=== PATIENT | male | born 1975 | race Caucasian/White ===

== ENCOUNTER 2017-01-16 10:51 | Emergency (ER) | payer BC ==
[2017-01-16 12:00] LABS: Hematocrit 49 % (42-52); Hemoglobin 16.6 g/dl (14.0-18.0); Mean Corpuscular HGB Conc 34 g/dl (31-36); Mean Corpuscular Hemoglobin 29 pg (27-31); Mean Corpuscular Volume 86 fL (80-94); Mean Platelet Volume 8 um3 (7.4-10.4); Red Blood Count 5.69 10^6/ul (4.0-5.4); Red Cell Distribution Width 13 % (10.5-15)
[2017-01-16 12:14] LABS: ALT 15 U/L (7-52); Albumin 4.7 g/dL (3.2-5.2); Alkaline Phosphatase 71 U/L (34-104); BUN/Creatinine Ratio 12.2 (8-20); Blood Urea Nitrogen 11 mg/dL (6-24); C Reactive Protein < 1.00 mg/L (< 5.00); CO2 Carbon Dioxide 27 mmol/L (22-32); Calcium 9.6 mg/dL (8.6-10.3); Chloride 103 mmol/L (101-111); Creatine Kinase 168 U/L (10-223); EGFR African American 120.2 (>60); EGFR Non-African American 93.5 (>60); Glucose 96 mg/dL (70-100); Sodium 135 mmol/L (133-145); Total Protein 7.7 g/dL (6.4-8.9)
--- NOTE | 2017-01-16 12:19 | RAD ---
HISTORY: Abdominal pain COMPARISONS: None TECHNIQUE: Multiple transverse and longitudinal ultrasound images were obtained of the right upper quadrant. FINDINGS: LIVER: In the right lobe of the liver there are 2 hyperechoic and avascular foci each measuring approximately 1 cm in average dimension. Otherwise the liver is normal in dimensions and echogenicity. Normal hepatic and portal venous blood flow is duplicated with color flow imaging. There is no gross intrahepatic biliary duct dilatation. GALLBLADDER AND EXTRAHEPATIC BILIARY DUCT: Within the gallbladder lumen there is echogenic nonshadowing, avascular material that appears to be immobile. There is no pericholecystic fluid or gallbladder wall thickening. The common bile duct measures a maximum diameter of 6 mm. PANCREAS: The portions of the pancreas not obscured by bowel gas are normal in appearance. RIGHT KIDNEY: The right kidney is normal in size, morphology and echogenicity. AORTA AND IVC: The visualized portions are normal in appearance and not pathologically dilated. IMPRESSION: 1. SONOGRAPHIC FINDINGS ARE CONSISTENT WITH EITHER GALLBLADDER SLUDGE, POLYPS OR ADENOMYOMATOSIS. THERE ARE NO ACUTE INFLAMMATORY CHANGES OR SIGNS OF PATHOLOGIC BILIARY OBSTRUCTION. 2. FINDINGS IN THE RIGHT LOBE OF THE LIVER ARE MOST CONSISTENT WITH BENIGN HEMANGIOMAS.
[2017-01-16 12:56] LABS: AST 18 U/L (13-39); Anion Gap 5 mmol/L (2-11)
[2017-01-16 13:44] VITALS: BP 127/89
--- NOTE | 2017-01-16 18:39 | ED ---
Royer Nova Angela, scribed for Pravin Sutton MD on 01/16/17 at 1121 . Abdominal Pain/Male - HPI Summary HPI Summary: This pt is a 41 y/o male presenting to [facility] [place] c/o intermittent upper abd tenderness x4 days. Pt reports it is worse in the evenings after eating. At its worse the pain is rated 7-8 out of 10 in severity. At its best the pain is rated 4 out of 10 in severity. Pt denies fever, chills, nausea, vomiting, diarrhea. He states during this summer he had some abd pain and light- headedness which he attributes to dehydration. He notes he was hydrated and was well for 2 months until today. PMHx: appendectomy. - History of Current Complaint Chief Complaint: EDAbdPain Stated Complaint: ABD PAIN Time Seen by Provider: 01/16/17 11:15 Hx Obtained From: Patient Onset/Duration: Lasting Days, Still Present Timing: Lasting Days Pain Intensity: 4 - at its best Pain Scale Used: 0-10 Numeric Location: Discrete At: RUQ Aggravating Factor(s): Food Alleviating Factor(s): Nothing Associated Signs And Symptoms: Negative: Fever, Nausea, Vomiting, Diarrhea - Allergies/Home Medications Allergies/Adverse Reactions: Allergies Allergy/AdvReac Type Severity Reaction Status Date / Time No Known Allergies Allergy Verified 01/16/17 11:40 PMH/Surg Hx/FS Hx/Imm Hx Endocrine/Hematology History: Denies: Hx Diabetes Cardiovascular History: Denies: Hx Hypertension Infectious Disease History: No Infectious Disease History: Denies: Traveled Outside the [place] in Last 30 Days - Family History Known Family History: Positive: Cardiac Disease - murmur, Other - cancer - Social History Alcohol Use: Occasionally Substance Use Type: Reports: Marijuana Smoking Status (MU): Never Smoked Tobacco Review of Systems Negative: Fever, Chills Positive: Abdominal Pain. Negative: Vomiting, Diarrhea, Nausea All Other Systems Reviewed And Are Negative: Yes Physical Exam - Summary Physical Exam Summary: VITAL SIGNS: Reviewed. GENERAL: Patient is a well-developed and nourished male who is lying comfortable in the stretcher. Patient is not in any acute respiratory distress. HEAD AND FACE: Normocephalic and atraumatic. EYES: PERRLA, EOMI x 2, No injected conjunctiva. EARS: Hearing grossly intact. Ear canals and tympanic membranes are WNL. MOUTH: Oropharynx within normal limits. NECK: Supple, trachea is midline, no adenopathy, no JVD. CHEST: Symmetric, no tenderness at palpation LUNGS: Clear to auscultation bilaterally. No wheezing or crackles. CVS: RRR, S1 and S2 present, no murmurs or gallops appreciated. ABDOMEN: Soft, non-tender. No signs of distention. Positive bowel sounds. No rebound no guarding, and no masses palpated. No abdominal bruit or pulsations. EXTREMITIES: FROM in all major joints, no edema, no cyanosis or clubbing. NEURO: Alert and oriented x 3. No acute neurological deficits. Speech is normal. SKIN: Dry and warm Triage Information Reviewed: Yes Vital Signs On Initial Exam: Initial Vitals Temp Pulse Resp BP Pulse Ox 98.1 F 75 18 145/84 99 01/16/17 11:02 01/16/17 11:02 01/16/17 11:02 01/16/17 11:02 01/16/17 11:02 Vital Signs Reviewed: Yes Diagnostics - Vital Signs Vital Signs Temp Pulse Resp BP Pulse Ox 01/16/17 11:02 98.1 F 75 18 145/84 99 - Laboratory Lab Results: Lab Results 01/16/17 01/16/17 01/16/17 Range/Units 11:30 11:30 11:30 WBC 8.0 (3.5-10.8) 10^3/ul RBC 5.69 H (4.0-5.4) 10^6/ul Hgb 16.6 (14.0-18.0) g/dl Hct 49 (42-52) % MCV 86 (80-94) fL MCH 29 (27-31) pg MCHC 34 (31-36) g/dl RDW 13 (10.5-15) % Plt Count 251 (150-450) 10^3/ul MPV 8 (7.4-10.4) um3 Neut % (Auto) 71.5 (38-83) % Lymph % (Auto) 21.9 L (25-47) % [place] % (Auto) 5.2 (1-9) % Eos % (Auto) 0.9 (0-6) % Baso % (Auto) 0.5 (0-2) % Absolute Neuts (auto) 5.7 (1.5-7.7) 10^3/ul Absolute Lymphs (auto) 1.8 (1.0-4.8) 10^3/ul Absolute Monos (auto) 0.4 (0-0.8) 10^3/ul Absolute Eos (auto) 0.1 (0-0.6) 10^3/ul Absolute Basos (auto) 0 (0-0.2) 10^3/ul Absolute Nucleated RBC 0.01 10^3/ul Nucleated RBC % 0.2 Sodium 135 (133-145) mmol/L Potassium 4.0 (3.5-5.0) mmol/L Chloride 103 (101-111) mmol/L Carbon Dioxide 27 (22-32) mmol/L Anion Gap 5 (2-11) mmol/L BUN 11 (6-24) mg/dL Creatinine 0.90 (0.67-1.17) mg/dL Est GFR ( Amer) 120.2 (>60) Est GFR (Non-Af Amer) 93.5 (>60) BUN/Creatinine Ratio 12.2 (8-20) Glucose 96 (70-100) mg/dL Lactic Acid 1.0 (0.5-2.0) mmol/L Calcium 9.6 (8.6-10.3) mg/dL Total Bilirubin 2.00 H (0.2-1.0) mg/dL AST 18 (13-39) U/L ALT 15 (7-52) U/L Alkaline Phosphatase 71 (34-104) U/L Total Creatine Kinase 168 (10-223) U/L C-Reactive Protein < 1.00 (< 5.00) mg/L Total Protein 7.7 (6.4-8.9) g/dL Albumin 4.7 (3.2-5.2) g/dL Globulin 3.0 (2-4) g/dL Albumin/Globulin Ratio 1.6 (1-3) Result Diagrams: 01/16/17 11:30 01/16/17 11:30 Lab Statement: Any lab studies that have been ordered have been reviewed, and results considered in the medical decision making process. - Ultrasound No standard instances Ultrasound Interpretation: Positive (See Comments) - Gallbladder US IMPRESSION: 1. Sonographic findings are consistent with either gallbladder sludge, polyps, or adenomyomatosis. There are no acute inflammatory changes or signs of pathologic biliary obstruction. 2. Findings in the right lobe of the liver are most consistent with benign hemangiomas. ED physician has reviewed this radiology report and agrees. Ultrasound Interpretation Completed By: Radiologist - EKG 1122 Cardiac Rate: NL - 63 bpm EKG Rhythm: Sinus Rhythm EKG Interpretation: Hyperacute T waves Abdominal Pain Fem Course/Dx - Course Assessment/Plan: This pt is a 41 y/o male presenting to [facility] [place] c/o intermittent upper abd tenderness x4 days. Pt reports it is worse in the evenings after eating. At its worse the pain is rated 7-8 out of 10 in severity. At its best the pain is rated 4 out of 10 in severity. Pt denies fever, chills, nausea, vomiting, diarrhea. He states during this summer he had some abd pain and light- headedness which he attributes to dehydration. He notes he was hydrated and was well for 2 months until today. PMHx: appendectomy. Test results without any significant abnormalities, except for total bilirubin of 2. RUQ US shows sonographic findings are consistent with either gallbladder sludge, polyps, or adenomyomatosis. There are no acute inflammatory changes or signs of pathologic biliary obstruction. 2. Findings in the right lobe of the liver are most consistent with benign hemangiomas. The pt is completely asymptomatic. The pt reported the pain resolved this morning after he came in the emergency room. Due to the pt having sludge in the gallbladder without increased LFTS. pt will be discharged home with follow up from surgery. Pt was instructed to return for increased pain, nausea, vomiting, fever, and chills. Pt understands and agrees. Pt is hemodynamically stable, alert and oriented x3. - Diagnoses Differential Diagnosis/HQI/PQRI: Constipation, Gall Bladder Disease, Urinary Tract Infection Provider Diagnoses: Cholelithiasis Discharge - Discharge Plan Condition: Stable Disposition: HOME Patient Education Materials: Gallstones (ED) Referrals: [facility] [Outside] [facility] [Medical Doctor] - Additional Instructions: Please follow up with your primary care provider. Follow up with surgery. RETURN TO THE ED FOR ANY WORSENING SYMPTOMS. The documentation as recorded by the Royer mitchell Angela accurately reflects the service I personally performed and the decisions made by , Pravin Sutton MD.
== END 2017-01-16 13:45 | disposition home or self-care (01) ==
LOC: ED 10:51
DX: K80.20 Calculus of gallbladder without cholecystitis without obstruction (principal); R10.9 Unspecified abdominal pain
CPT/HCPCS: 36415; 76705; 80053; 82550; 83605; 85025; 86140; 93005; 99282